=== PATIENT | male | born 1955 | race Caucasian/White ===

== ENCOUNTER 2023-05-18 09:35 | Inpatient (IN) | payer OTHER ==
[2023-05-18 10:04] VITALS: BMI 40.3
[2023-05-18] MEDS ORDERED: ONDANSETRON *ODT* 4 MG TABLET SL PRN (11:25)
[2023-05-18] MEDS ORDERED: MAG HYDROX/AL HYDROX/SIMETH 30 ML UNIT-DOSE CUP PO PRN (11:25)
[2023-05-18] MEDS ORDERED: MAGNESIUM HYDROX 2400MG/30ML ORAL SUSPENSION 30 ML CUP PO PRN (11:25)
[2023-05-18] MEDS ORDERED: ACETAMINOPHEN 325 MG TABLET (FP) PO PRN (11:25)
[2023-05-18] MEDS ORDERED: DICYCLOMINE HCL 10 MG CAPSULE PO PRN (11:25)
[2023-05-18] MEDS ORDERED: IBUPROFEN 400 MG TABLET (FP) PO PRN (11:25)
[2023-05-18] MEDS ORDERED: POLYETHYLENE GLYCOL (HEALTHYLAX) 3350 17 GM PACKET PO PRN (11:25)
[2023-05-18] MEDS ORDERED: guaiFENesin 600 MG TABLET.ER (FP) PO PRN (11:25)
[2023-05-18] MEDS ORDERED: BENZOCAINE/MENTHOL (CHLORASEPTIC ) LOZENGE MM PRN (11:25)
[2023-05-18] MEDS ORDERED: BENZONATATE 200 MG CAPSULE PO PRN (11:25)
[2023-05-18] MEDS ORDERED: BISMUTH SUBSALICYLATE 524 MG/30 ML PO PRN (11:25)
[2023-05-18] MEDS ORDERED: LOPERAMIDE HCL 2 MG CAPSULE PO PRN (11:25)
[2023-05-18] MEDS ORDERED: NALOXONE HCL (KLOXXADO) 8 MG SPRAY NS PRN (11:25)
[2023-05-18] MEDS ORDERED: NALOXONE HCL 0.4 MG/ML VIAL IM PRN (11:25)
[2023-05-18] MEDS ORDERED: IBUPROFEN 600 MG TABLET (FP) PO PRN (11:25)
[2023-05-18] MEDS ORDERED: PRENATAL VITAMINS W/ FOLIC ACID TABLET (FP) PO ONE (12:08)
[2023-05-18] MEDS ORDERED: cloNIDine HCL 0.1 MG TABLET ONE (12:27)
[2023-05-18] MEDS ORDERED: cloNIDine HCL 0.1 MG TABLET PO ONE (12:30)
[2023-05-18] MEDS: PRENATAL VITAMINS W/ FOLIC ACID TABLET (FP) PO SCH (12:34)
[2023-05-18] MEDS: METHOCARBAMOL 500 MG TABLET PO PRN ×2 (13:19→22:08)
[2023-05-18] MEDS: hydrOXYzine PAMOATE 25 MG CAPSULE (FP) PO PRN (13:19)
[2023-05-18] MEDS ORDERED: diazePAM 5 MG TABLET PO PRN (13:20)
[2023-05-18] MEDS ORDERED: INSULIN SLIDING SCALE (NOVOLOG) 1 VIAL SQ SCH (16:30)
[2023-05-18] MEDS: INSULIN SLIDING SCALE (NOVOLOG) 1 VIAL SQ SCH (17:12)
[2023-05-18] MEDS: diazePAM 5 MG TABLET PO SCH ×2 (17:29→22:08)
[2023-05-18] MEDS: cloNIDine HCL 0.1 MG TABLET PO PRN ×2 (18:05→22:09)
[2023-05-18] MEDS: MELATONIN 5 MG TABLETS PO SCH (22:09)
[2023-05-18] MEDS: THIAMINE HCL 100 MG TABLET (FP) PO SCH (22:09)
[2023-05-19] MEDS: diazePAM 5 MG TABLET PO SCH ×4 (05:26→22:34)
[2023-05-19] MEDS: INSULIN SLIDING SCALE (NOVOLOG) 1 VIAL SQ SCH ×2 (06:35→16:51)
[2023-05-19] MEDS: cloNIDine HCL 0.1 MG TABLET PO PRN (10:06)
[2023-05-19] MEDS: PRENATAL VITAMINS W/ FOLIC ACID TABLET (FP) PO SCH (10:06)
[2023-05-19 11:40] LABS: HEMATOCRIT 39.9 % (35.4-49); HEMOGLOBIN 13.4 GM/dL (11.7-16.9); MCH 30.9 pg (25.7-33.7); MCHC 33.6 g/dl (32.0-35.9); MEAN CELL VOLUME 91.9 fl (80-96); PLATELET COUNT 143 10^3/uL (134-434); RBC 4.34 M/mm3 (4.00-5.60); RDW 21.9 % (11.9-15.9)
[2023-05-19 12:05] LABS: POTASSIUM 3.4 mmol/L (3.5-5.1)
[2023-05-19 12:08] LABS: BLOOD UREA NITROGEN 14.7 mg/dL (7-18)
[2023-05-19 12:11] LABS: CREATININE 0.5 mg/dL (0.55-1.3)
[2023-05-19] MEDS ORDERED: POTASSIUM CHLORIDE ORAL LIQUID 20 MEQ/15 ML PO ONE (12:11)
[2023-05-19 12:13] LABS: BILIRUBIN,TOTAL 0.8 mg/dL (0.2-1)
[2023-05-19] MEDS: LACTULOSE 20 GM/30 ML UDC (FOR ORAL USE ONLY) PO SCH ×2 (13:11→22:32)
[2023-05-19] MEDS ORDERED: POTASSIUM CHLORIDE ORAL LIQUID 20 MEQ/15 ML PO SCH (22:00)
[2023-05-19] MEDS: THIAMINE HCL 100 MG TABLET (FP) PO SCH (22:33)
[2023-05-19] MEDS: MELATONIN 5 MG TABLETS PO SCH (22:33)
[2023-05-19] MEDS: METHOCARBAMOL 500 MG TABLET PO PRN (22:33)
[2023-05-19] MEDS: hydrOXYzine PAMOATE 25 MG CAPSULE (FP) PO PRN (22:33)
[2023-05-20] MEDS: LACTULOSE 20 GM/30 ML UDC (FOR ORAL USE ONLY) PO SCH ×3 (05:28→22:22)
[2023-05-20] MEDS: diazePAM 5 MG TABLET PO SCH ×3 (05:29→22:23)
[2023-05-20] MEDS: INSULIN SLIDING SCALE (NOVOLOG) 1 VIAL SQ SCH ×2 (07:00→17:33)
[2023-05-20] MEDS: PRENATAL VITAMINS W/ FOLIC ACID TABLET (FP) PO SCH (10:06)
[2023-05-20] MEDS: amLODIPine BESYLATE 10 MG TABLET (FP) PO SCH (17:36)
[2023-05-20] MEDS: MELATONIN 5 MG TABLETS PO SCH (22:22)
[2023-05-20] MEDS: THIAMINE HCL 100 MG TABLET (FP) PO SCH (22:22)
[2023-05-20] MEDS: METHOCARBAMOL 500 MG TABLET PO PRN (22:22)
[2023-05-20] MEDS: hydrOXYzine PAMOATE 25 MG CAPSULE (FP) PO PRN (22:22)
[2023-05-21] MEDS: diazePAM 5 MG TABLET PO SCH ×2 (05:20→17:22)
[2023-05-21] MEDS: LACTULOSE 20 GM/30 ML UDC (FOR ORAL USE ONLY) PO SCH ×3 (05:21→21:48)
[2023-05-21] MEDS: INSULIN SLIDING SCALE (NOVOLOG) 1 VIAL SQ SCH ×2 (06:52→17:23)
[2023-05-21] MEDS: amLODIPine BESYLATE 10 MG TABLET (FP) PO SCH (09:20)
[2023-05-21] MEDS: PRENATAL VITAMINS W/ FOLIC ACID TABLET (FP) PO SCH (09:20)
[2023-05-21 10:25] LABS: POTASSIUM 3.7 mmol/L (3.5-5.1)
[2023-05-21 10:28] LABS: CALCIUM 8.8 mg/dL (8.5-10.1)
[2023-05-21 10:29] LABS: BLOOD UREA NITROGEN 14.4 mg/dL (7-18)
[2023-05-21 10:32] LABS: CREATININE 0.8 mg/dL (0.55-1.3)
[2023-05-21] MEDS: cloNIDine HCL 0.1 MG TABLET PO PRN (13:40)
[2023-05-21 20:59] VITALS: RESP 18
[2023-05-21] MEDS: THIAMINE HCL 100 MG TABLET (FP) PO SCH (21:48)
[2023-05-21] MEDS: MELATONIN 5 MG TABLETS PO SCH (21:48)
[2023-05-21] MEDS ORDERED: LISINOPRIL 5 MG TABLET PO ONE (23:01)
[2023-05-22] MEDS: LACTULOSE 20 GM/30 ML UDC (FOR ORAL USE ONLY) PO SCH (05:21)
[2023-05-22 05:57] VITALS: BP 149/80; PULSE 61; TEMP 97.8
[2023-05-22] MEDS ORDERED: diazePAM 5 MG TABLET PO ONE (06:00)
[2023-05-22] MEDS: INSULIN SLIDING SCALE (NOVOLOG) 1 VIAL SQ SCH (07:11)
[2023-05-22] MEDS ORDERED: LISINOPRIL 5 MG TABLET PO SCH (10:00)
== END 2023-05-22 09:52 | disposition home or self-care (01) | DRG 897 ==
LOC: YASAS 09:35 → Y3N 12:19
PROVIDERS: ADMIT Allergy & Immunology; ATTEND Surgery
PROC: HZ2ZZZZ Detoxification Services for Substance Abuse Treatment (ICD-10-PCS; principal; 2023-05-18)
DX: F10.230 Alcohol dependence with withdrawal, uncomplicated (principal); F11.20 Opioid dependence, uncomplicated; F13.20 Sedative, hypnotic or anxiolytic dependence, uncomplicated; F12.20 Cannabis dependence, uncomplicated; I10 Essential (primary) hypertension; R73.03 Prediabetes; R79.89 Other specified abnormal findings of blood chemistry; Z62.810 Personal history of physical and sexual abuse in childhood; Z86.59 Personal history of other mental and behavioral disorders; Z87.891 Personal history of nicotine dependence
CPT/HCPCS: 36415; 80048; 80053; 82140; 82962; 83036; 85027; 86780; 87635; 87811